=== PATIENT | male | born 2005 | race Caucasian/White ===

== ENCOUNTER 2024-07-31 20:23 | Inpatient (IN) | payer OTHER ==
[~2024-07-31] VITALS: Ht 170.2 cm; Wt 74.5 kg
[2024-07-31] MEDS: ACETAMINOPHEN 325 MG TAB PO ONE (20:55)
[2024-07-31 20:56] LABS: HEMATOCRIT 41.6 % (42.0-52.0); HEMOGLOBIN 14.4 g/dl (13.5-17.5); MEAN CORPUSCULAR HEMOGLOBIN 30.1 pg (27.0-33.0); MEAN CORPUSCULAR HGB CONC 34.6 g/dl (32.0-36.5); PLATELET COUNT, AUTOMATED 278 10^3/uL (150-450); RED BLOOD COUNT 4.78 10^6/uL (4.30-6.10); WHITE BLOOD COUNT 8.1 10^3/uL (4.0-10.0)
[2024-07-31 21:32] LABS: AMPHETAMINES LEVEL URINE NEGATIVE (NEGATIVE); BARBITURATES URINE NEGATIVE (NEGATIVE); BENZODIAZEPINES URINE NEGATIVE (NEGATIVE); COCAINE METABOLITE URINE NEGATIVE (NEGATIVE); METHADONE URINE NEGATIVE (NEGATIVE); OPIATES URINE NEGATIVE (NEGATIVE)
[2024-07-31 21:33] LABS: CANNABINOIDS URINE NEGATIVE (NEGATIVE); PHENCYCLIDINE URINE NEGATIVE (NEGATIVE)
[2024-07-31 21:34] LABS: ETHYL ALCOHOL (ETHANOL) 0.004 % (0.000-0.010)
[2024-07-31 21:36] LABS: ALKALINE PHOSPHATASE 126 U/L (40-129); ALT/SGPT 23 U/L (7.0-40); AST/SGOT 26 U/L (<34); BILIRUBIN,DIRECT 0.2 MG/DL (<0.4); BILIRUBIN,TOTAL 0.5 MG/DL (0.3-1.2); BLOOD UREA NITROGEN 11 MG/DL (9-23); CALCIUM LEVEL 9.4 MG/DL (8.5-10.1); CARBON DIOXIDE LEVEL 30 MMOL/L (20-31); CHLORIDE LEVEL 105 MMOL/L (98-107); CPK CREATINE PHOSPHOKINASE 172 U/L (46-171); CREATININE FOR GFR 0.89 MG/DL (0.70-1.30); GLOMERULAR FILTRATION RATE > 90.0 (>60); GLUCOSE, FASTING 91 MG/DL (60-100); SALICYLATE LEVEL < 3.0 MG/DL (<30); SODIUM LEVEL 142 MMOL/L (136-145); TOTAL PROTEIN 6.9 G/DL (5.7-8.2)
[2024-07-31 21:38] LABS: THYROID STIMULATING HORMONE 1.386 uIU/ML (0.48-4.17)
[2024-08-01] MEDS ORDERED: ACETAMINOPHEN 325 MG TAB PO PRN (00:25)
[2024-08-01] MEDS ORDERED: MAALOX 30 ML SUSP *UDC PO PRN (00:25)
[2024-08-01] MEDS ORDERED: MOM 30ML SUSPENSION UDC PO PRN (00:25)
[2024-08-01] MEDS ORDERED: IBUPROFEN 400MG TAB PO PRN (00:25)
[2024-08-01 01:48] VITALS: BP 143/85; TEMP 97.3; O2SAT 99
[2024-08-01] MEDS: SERTRALINE HCL 50 MG TAB PO SCH (14:40)
[2024-08-01 15:04] VITALS: BP 144/88; TEMP 97.4; O2SAT 99
[2024-08-02 06:31] VITALS: BP 126/67; TEMP 97; O2SAT 98
[2024-08-02 15:05] VITALS: BP 170/84; TEMP 97.7; O2SAT 99
[2024-08-02] MEDS: **hydrALAZINE** 10 MG TAB PO PRN (16:31)
[2024-08-02 17:42] VITALS: BP 148/74
[2024-08-03 07:01] VITALS: BP 145/80; TEMP 97.2; O2SAT 96
[2024-08-03 14:57] VITALS: BP 162/94
[2024-08-03 14:58] VITALS: BP 162/94; TEMP 97.8; O2SAT 99
[2024-08-03 16:01] VITALS: BP 162/94; TEMP 97.8; O2SAT 99
[2024-08-03 16:04] VITALS: BP 164/82
[2024-08-03] MEDS: traZODone 50 MG TAB PO PRN (22:04)
[2024-08-03] MEDS: diphenhydrAMINE 25MG CAP PO PRN (23:35)
[2024-08-04 07:04] VITALS: BP 100/78; TEMP 98; O2SAT 98
[2024-08-04] MEDS ORDERED: HYDR-4570 PO (12:51)
[2024-08-04] MEDS ORDERED: SERT50TA29 PO (12:51)
[2024-08-04] MEDS ORDERED: TRAZ-252 PO (12:51)
== END 2024-08-04 14:38 | disposition home or self-care (01) | DRG 885 ==
LOC: M ED 20:23 → EDBD 20:23 → M ED INP 08-01 00:23 → M PSY 08-01 01:46
PROVIDERS: ADMIT Psychiatry & Neurology Neurology; ATTEND Psychiatry & Neurology Neurology
DX: F33.1 Major depressive disorder, recurrent, moderate (principal); R45.851 Suicidal ideations; F41.1 Generalized anxiety disorder; G44.209 Tension-type headache, unspecified, not intractable; R03.0 Elevated blood-pressure reading, without diagnosis of hypertension

== ENCOUNTER 2024-09-24 07:10 | Emergency (ER) | payer OTHER ==
[~2024-09-24] VITALS: Ht 177.8 cm; Wt 83.8 kg
[~2024-09-24 07:10] MED LIST: HYDR-3364 PO; SERT50TA29 PO; TRAZ-252 PO
[2024-09-24 10:38] LABS: BASO # 0.0 10^3/uL (0.0-0.2); BASO % 0.6 % (0.0-1.0); EOS # 0.2 10^3/uL (0.0-0.5); EOS % 2.1 % (0.0-3.0); LYMPH # 1.6 10^3/uL (1.5-5.0); LYMPH % 22.9 % (24.0-44.0); MONO # 0.7 10^3/uL (0.0-0.8); MONO % 10.2 % (2.0-8.0); NEUTROPHILS # 4.5 10^3/uL (1.5-8.5); NEUTROPHILS % 63.8 % (36.0-66.0); PLATELET COUNT, AUTOMATED 286 10^3/uL (150-450)
[2024-09-24 11:04] LABS: ALT/SGPT 44 U/L (7.0-40); AST/SGOT 35 U/L (<34); CALCIUM LEVEL 9.7 MG/DL (8.5-10.1); CARBON DIOXIDE LEVEL 29 MMOL/L (20-31); CHLORIDE LEVEL 105 MMOL/L (98-107); CREATININE FOR GFR 0.71 MG/DL (0.70-1.30); GLOMERULAR FILTRATION RATE > 90.0 (>60); POTASSIUM SERUM 4.4 MMOL/L (3.5-5.1); SODIUM LEVEL 143 MMOL/L (136-145)
[2024-09-24] MEDS ORDERED: VENTAER INH (11:27)
[2024-09-24] MEDS ORDERED: PRED10TA2 PO (11:27)
[2024-09-24 11:39] VITALS: BP 134/79; TEMP 97.7; O2SAT 100
== END 2024-09-24 11:41 | disposition home or self-care (01) ==
LOC: M ED 07:10
DX: J20.9 Acute bronchitis, unspecified (principal); I45.10 Unspecified right bundle-branch block; Z79.51 Long term (current) use of inhaled steroids; Z79.899 Other long term (current) drug therapy; Z79.52 Long term (current) use of systemic steroids